=== PATIENT | female | born 1950 | race Caucasian/White ===

== ENCOUNTER 2019-06-17 08:29 | Day surgery (SDC) | payer MEDICARE, BC ==
[~2019-06-17] VITALS: Ht 165.1 cm; Wt 76.7 kg
[~2019-06-17 08:29] MED LIST: 24 HOUR ALLER15.8 ML NS; AMLODIPINE BESYL5 MG PO; ARMOUR THYROID60 MG PO; CALCIUM + VITA1 EACH PO; FISH OIL300 MG PO; LEVSIN-SL0.125 MG SL; NEXIUM20 MG PO; SERTRALINE HCL25 MG PO
--- NOTE | 2019-06-17 10:01 | NUR ---
06/17/19 1001 Che Carrillo 0957 PATIENT ARRIVES TO PACU AWAKE, BUT DROWSY. DENIES PAIN OR NAUSEA. OXYGEN TURNED OFF ON ARRIVAL TO PACU, ROOM AIR SATS >96%. GLASS GIVEN BACK TO PATIENT.
--- NOTE | 2019-06-17 13:10 | OR ---
[facility] [address] [place], [place] [address] Signed DATE OF OPERATION: 06/17/2019 SURGEON: Clarisa Huddleston MD PREOPERATIVE DIAGNOSES: 1. Episodic cervical dysphagia. 2. History of clinical reflux symptoms. POSTOPERATIVE DIAGNOSIS: Normal-appearing hypopharynx, esophagus, stomach, and duodenum. PROCEDURE: Esophagogastroduodenoscopy with biopsy. ANESTHESIA: Intravenous sedation, fentanyl 100 mcg, Versed 5 mg. INDICATION: This 69-year-old white woman is a patient of Dr. Wilcox and was referred for upper endoscopy. Patient is known to me from the past having been seen in 2015, at which time she underwent upper endoscopy for similar complaints of cervical dysphagia. There were no significant findings at that time and no sign of eosinophilic esophagitis. She was referred in September for consideration of upper endoscopy on the basis of reflux problems. She notes her reflux problems are improved with Nexium. She has been taking Nexium more or less for 15 years. She had cervical dysphagia to a degree. Certain foods would stick in the area including bread and meat. She had voice changes such that she was unable to sing. Her symptoms have improved. Many of her symptoms have since cleared up. She remains on Nexium. It is notable that her symptoms had increased after respiratory infection in August or September. Fair amount of phlegm and other respiratory secretions were noted. She has no globus sensation. She is known to take thyroid supplement, T3 and T4, but no known thyroid nodule or goiter. She has had no prior neck injury. Notably, her grandmother had a very large goiter. She was admitted at this time to undergo upper endoscopy to better characterize her problem understanding the risks of bleeding, infection, and perforation. FINDINGS: Examination was normal. This included the vocal cords, hypopharynx, entire esophagus, stomach, and duodenum. Biopsies were obtained nevertheless. DESCRIPTION OF PROCEDURE: Electronically Signed By: CLARISA HUDDLESTON MD 06/17/19 1310 PATIENT NAME: GAIL RAMOS OPERATIVE REPORT DATE OF : 46 REPORT #: [id number] PHYSICIAN: CLARISA HUDDLESTON MD PCP: CAMPBELL WILCOX MD REPORT IS CONFIDENTIAL AND NOT TO BE RELEASED WITHOUT AUTHORIZATION [facility] [address] [place], [place] [address] Signed The patient was brought to the endoscopy suite and given topical Hurricaine spray and hypopharyngeal anesthesia and placed in lateral decubitus position. She was given intravenous sedation to the point of slurred speech and nystagmus with full cardiopulmonary monitoring. A bite block was placed and an Olympus video upper endoscope passed in the hypopharynx. The vocal cords and surrounding soft tissue were normal. Scope was advanced to the esophagus without problem. The scope was advanced down the esophagus, which appeared normal. Stomach insufflated. Rugal folds were normal. Antrum and pylorus normal. Scope was passed through the pylorus into the duodenum, which was normal. Biopsies were obtained to assess for celiac disease. The scope was withdrawn. Biopsies taken of the stomach for both AARON and pathologic testing. Retroflexed view showed a normal flap valve and no sign of hiatal hernia. Withdrawal of scope to the distal esophagus allowed for biopsies of the mid, distal, and proximal portions. Re-inspection of the hypopharynx showed no abnormalities. Scope was removed and the patient was taken to recovery room in good condition. CONCLUDING DIAGNOSIS: Essentially normal. PLAN: I would have her continue with Nexium as it appears she has improvement while on the medication. We acknowledge potential risks with long-term PPI use. However, it appears to keep her clinical reflux symptoms at bay. She will return to the ongoing care of Dr. Wilcox. MD YURIY Guzman/MICHELLEL /[id number] cc: Dr. Wilcox Copies: ~ Electronically Signed By: CLARISA HUDDLESTON MD 06/17/19 1310 PATIENT NAME: GAIL RAMOS OPERATIVE REPORT DATE OF : 46 REPORT #: [id number] PHYSICIAN: CLARISA HUDDLESTON MD PCP: CAMPBELL WILCOX MD REPORT IS CONFIDENTIAL AND NOT TO BE RELEASED WITHOUT AUTHORIZATION
--- NOTE | 2019-06-20 13:41 | PATH ---
[facility] [address] [place], [place] [address] Signed SPECIMEN(S): A DUODENUM NOS SPECIMEN(S): B ANTRUM SPECIMEN(S): C DISTAL ESOPHAGUS NOS SPECIMEN(S): D MID ESOPHAGUS NOS SPECIMEN(S): E PROXIMAL ESOPHAGUS NOS SPECIMEN SOURCE: A. DUODENUM NOS B. ANTRUM C. DISTAL ESOPHAGUS NOS D. MID ESOPHAGUS NOS E. PROXIMAL ESOPHAGUS NOS CLINICAL HISTORY: Dysphagia, GERD / Normal esophagus. MICROSCOPIC DESCRIPTION: Histologic sections of all submitted blocks are examined by light microscopy. These findings, together with the gross examination, support the pathologic diagnosis. FINAL PATHOLOGIC DIAGNOSIS: A. Duodenum, biopsy: - Duodenal mucosa with no histopathologic abnormality. - Normal villous architecture present. - Negative for dysplasia or malignancy. B. Stomach, antrum, biopsy: - Antral mucosa with no histopathologic abnormality. - No Helicobacter organisms identified on HE stain. - Negative for dysplasia or malignancy. C. Esophagus, distal, biopsy: - Squamous mucosa with mild reactive changes, see comment. - Negative for intestinal metaplasia, dysplasia or malignancy. D. Esophagus, mid, biopsy: - Squamous mucosa with mild reactive changes, see comment. - Negative for intestinal metaplasia, dysplasia, or malignancy. E. Esophagus, proximal, biopsy: - Squamous mucosa with no histopathologic abnormality. - Negative for intestinal metaplasia, dysplasia or malignancy. COMMENT: Sections of the distal and mid esophageal biopsies (C and D) are similar and PATIENT NAME: GALI RAMOS PATHOLOGY DATE OF : 46 REPORT #: [id number] PHYSICIAN: ANNEL PATHOLOGY PCP: CAMPBELL ADAME MD REPORT IS CONFIDENTIAL AND NOT TO BE RELEASED WITHOUT AUTHORIZATION [facility] [address] [place], [place] [address] Signed demonstrate focal mild basal cell hyperplasia, few scattered intraepithelial lymphocytes, spongiosis, and mild mucosal capillary dilation. These findings are suggestive of changes secondary to reflux esophagitis. Clinical correlation is required. NAL:cml:C2NR GROSS DESCRIPTION: A. The specimen is received in a formalin filled specimen container labeled "KS, #1". A single pink biopsy is 0.4 cm and entirely submitted in cassette A1. B. The specimen is received in a formalin filled specimen container labeled "KS, #2". A single soriano biopsy is 0.4 cm and entirely submitted in cassette B1. C. The specimen is received in a formalin filled specimen container labeled "KS, #3". A single soriano biopsy is 0.3 cm and entirely submitted in cassette C1. D. The specimen is received in a formalin filled specimen container labeled "KS, #4". Two soriano biopsies are 0.2 and 0.3 cm and entirely submitted in cassette D1. E. The specimen is received in a formalin filled specimen container labeled "KS, #5". A single soriano biopsy is 0.5 cm and entirely submitted in cassette E1. GW (under the direct supervision of a pathologist) The Gross Description was prepared using a voice recognition system. The report was reviewed for accuracy; however, sound-alike word errors, addition and/or deletions may occur. If there is any question about this report, please contact Client Services. PERFORMING LABORATORY: The technical component was performed by [facility], [address] [place] [address] (Stone Rigger: Amanda Blackburn MD; CLIA# [id number]). Professional interpretation was performed by [facility], [address] [address] (Stone Rigger: Ced Marcano MD; CLIA# [id number]). Diagnostician: Ami Jernigan MD Pathologist Electronically Signed 06/20/2019 Copies: PATIENT NAME: SHERRYCHAIGAILDERICK HASSAN PATHOLOGY DATE OF : 46 REPORT #: [id number] PHYSICIAN: ANNEL PATHOLOGY PCP: CAMPBELL ADAME MD REPORT IS CONFIDENTIAL AND NOT TO BE RELEASED WITHOUT AUTHORIZATION [facility] [address] [place], [place] [address] Signed ~ PATIENT NAME: FERNY RAMOSDERICK HASSAN PATHOLOGY DATE OF : 46 REPORT #: [id number] PHYSICIAN: [facility] PATHOLOG[facility] PCP: CAMPBELL ADAME MD REPORT IS CONFIDENTIAL AND NOT TO BE RELEASED WITHOUT AUTHORIZATION
== END 2019-06-17 10:25 | disposition home or self-care (01) ==
LOC: OPS 08:29 → DS 08:37 → OPS 09:30
PROVIDERS: Surgery
PROC: 0DB78ZX Excision of Stomach, Pylorus, Via Natural or Artificial Opening Endoscopic, Diagnostic (ICD-10-PCS; 2019-06-17)
PROC: 0DB38ZX Excision of Lower Esophagus, Via Natural or Artificial Opening Endoscopic, Diagnostic (ICD-10-PCS; 2019-06-17)
PROC: 0DB28ZX Excision of Middle Esophagus, Via Natural or Artificial Opening Endoscopic, Diagnostic (ICD-10-PCS; 2019-06-17)
PROC: 0DB18ZX Excision of Upper Esophagus, Via Natural or Artificial Opening Endoscopic, Diagnostic (ICD-10-PCS; 2019-06-17)
PROC: 0DB98ZX Excision of Duodenum, Via Natural or Artificial Opening Endoscopic, Diagnostic (ICD-10-PCS; principal; 2019-06-17 09:30)
DX: R13.13 Dysphagia, pharyngeal phase (principal); I10 Essential (primary) hypertension; K21.9 Gastro-esophageal reflux disease without esophagitis; E78.00 Pure hypercholesterolemia, unspecified; E03.9 Hypothyroidism, unspecified; K21.0 Gastro-esophageal reflux disease with esophagitis; Z98.1 Arthrodesis status; Z88.6 Allergy status to analgesic agent; Z88.5 Allergy status to narcotic agent; Z88.0 Allergy status to penicillin; Z88.8 Allergy status to other drugs, medicaments and biological substances; Z79.890 Hormone replacement therapy; Z98.890 Other specified postprocedural states
CPT/HCPCS: 88305; 99153; G0500; J2250; J3010; J7121

== ENCOUNTER 2020-07-12 06:24 | Day surgery (SDC) | payer MEDICARE, BC ==
[~2020-07-12] VITALS: Ht 165.1 cm; Wt 71.8 kg
[~2020-07-12 06:24] MED LIST changes: +ADVIL200 M1 PO; +ALIGN4 MG PO; +ECHINACEA400 MG PO; +MULTI VITAMIN1 EACH PO
--- NOTE | 2020-07-12 08:29 | NUR ---
07/12/20 0829 Che Carrillo 0823 PATIENT ARRIVES TO PACU AWAKE BUT DROWSY. RESP EVEN AND UNLABORED. ROOM AIR SATS >93%. PATIENT DENIES PAIN OR NAUSEA. 0825 PATIENT AWAKE. REPOSTIONS SELF TO BACK. RESP EVEN AND UNLABORED. DRINKING SIPS OF WATER.
--- NOTE | 2020-07-12 14:34 | NUR ---
CONNECTED BRIEFLY WITH PT OR STAFF WAS TAKING PT TO SURGERY. GAVE ENCOURAGEMENT, PT THANKED ME. WILL FOLLOW NEEDED
--- NOTE | 2020-07-13 09:01 | OR ---
[facility] [address] [place], [place] [address] Signed DATE OF OPERATION: 07/12/2020 SURGEON: Clarisa Huddleston MD PREOPERATIVE DIAGNOSES: 1. History of seven hyperplastic polyps in 2005. 2. Positive Cologuard test. POSTOPERATIVE DIAGNOSES: 1. Polyps x5 at 70 cm, 60 cm and rectosigmoid. 2. Diverticulosis, sigmoid colon. PROCEDURE: Total colonoscopy to cecum with cold morcellation polypectomy x5. ANESTHESIA: Intravenous sedation, propofol infusion, Andrew Christiano, DRILLING AND PRODUCTION SUPERINTENDENT PREOPERATIVE ANTIBIOTIC: Clindamycin. INDICATIONS: This 70-year-old white woman is a patient Dr. Wilcox and underwent colonoscopy by me in 2005, at which time she had seven hyperplastic polyps. She was advised to have repeat colonoscopy sooner than this, but she declined. She recently had a Cologuard test, which was positive. She has had no blood per rectum, diarrhea, or constipation problems. The patient does have history of left knee replacement, and she was given preoperative antibiotic clindamycin on that basis. She has multiple allergies as well. The risks of bleeding, infection, and perforation related to colonoscopy was reviewed with her, she understands and wished to proceed. FINDINGS: The prep was good. Complete colonoscopy was undertaken to the cecum. There were numerous diverticula of the sigmoid and left colon. There were five polyps identified, two of which were probably adenomas at 70 and 60 cm, the others were likely hyperplastic. There was no sign of large lesion, no sign of cancer by any means. DESCRIPTION OF PROCEDURE: The patient was brought to the surgical endoscopy suite, placed in lateral decubitus position, given intravenous sedation to the point of slurred speech and nystagmus with Electronically Signed By: CLARISA HUDDLESTON MD 07/13/20 0901 PATIENT NAME: GAIL RAMOS OPERATIVE REPORT DATE OF : 46 REPORT #: [id number] PHYSICIAN: CLARISA HUDDLESTON MD PCP: VANE WILCOX MD REPORT IS CONFIDENTIAL AND NOT TO BE RELEASED WITHOUT AUTHORIZATION [facility] [address] [place], [place] [address] Signed full cardiopulmonary monitoring by the stuntman with propofol infusional technique. Digital rectal examination was normal. Olympus video colonoscope was passed into the rectum and with all the care manipulated through a tortuous sigmoid with numerous diverticula and ultimately to the cecum. Ileocecal valve and appendiceal orifice were well identified. The prep was quite good. The scope was withdrawn from that point. Careful inspection upon withdrawal of scope showed no sign of abnormality until approximately 60 cm from the anal verge, where a small polyp was noted, this appeared adenomatous. Cold morcellation polypectomy was undertaken. This was at about 70 cm from the anal verge. Another small polyp was similarly noted there. The scope was withdrawn and another polyp of similar size and nature was noted at 60 cm. Careful withdrawal showed no other abnormality into the rectosigmoid, where there was a cluster of about four hyperplastic polyps, all excised with cold morcellation technique. Retroflexed view showed internal hemorrhoidal changes, but no other abnormality. The patient was taken to the recovery room in good condition, having suffered no complications. CONCLUDING DIAGNOSES: 1. Polyps x5, mix of hyperplastic and adenomatous, most likely. 2. Diverticulosis. PLAN: Recommend repeat colonoscopy in 5 years or sooner if symptoms should occur. She will return to the ongoing care of Dr. Wilcox. Clarisa Huddleston MD JM/MODL /[id number] cc: Vane Wilcox MD Copies: Electronically Signed By: CLARISA HUDDLESTON MD 07/13/20 0901 PATIENT NAME: GAIL RAMOS OPERATIVE REPORT DATE OF : 46 REPORT #: [id number] PHYSICIAN: CLARISA HUDDLESTON MD PCP: VANE WILCOX MD REPORT IS CONFIDENTIAL AND NOT TO BE RELEASED WITHOUT AUTHORIZATION [facility] [address] [place] [address] Signed ~ Electronically Signed By: CLARISA HUDDLESTON MD 07/13/20 0901 PATIENT NAME: GAIL RAMOS OPERATIVE REPORT DATE OF : 46 REPORT #: [id number] PHYSICIAN: CLARISA HUDDLESTON MD PCP: VANE WILCOX MD REPORT IS CONFIDENTIAL AND NOT TO BE RELEASED WITHOUT AUTHORIZATION
--- NOTE | 2020-07-13 16:02 | PATH ---
[facility] [address] [place], [place] [address] Signed SPECIMEN(S): A COLON POLYP AT 70 CM SPECIMEN(S): B COLON POLYP AT 60 CM SPECIMEN(S): C COLON POLYP AT 50 CM SPECIMEN(S): D RECTAL POLYP SPECIMEN SOURCE: A. COLON POLYP AT 70 CM B. COLON POLYP AT 60 CM C. COLON POLYP AT 50 CM D. RECTAL POLYP CLINICAL HISTORY: Colonoscopy. History of polyps, history of positive Cologuard. MICROSCOPIC DESCRIPTION: Histologic sections of all submitted blocks are examined by light microscopy. These findings, together with the gross examination, support the pathologic diagnosis. FINAL PATHOLOGIC DIAGNOSIS: A. Colon polyp at 70 cm: - Tubular adenoma (one fragment). B. Colon polyp at 60 cm: - Tubular adenoma (one fragment). - Serrated polyp/adenoma (two fragments). C. Colon polyp at 50 cm: - Serrated polyp/adenoma (one fragment). D. Rectal polyp: - Hyperplastic polyp (one fragment). JVR:caw:C2NR GROSS DESCRIPTION: Four specimens are received in four containers, labeled "KS." A. The specimen, labeled "KS, 1," and designated on the requisition "colon polyp at 70 cm," is received in formalin and consists of one soriano soft tissue fragment that measures 0.3cm in greatest dimension. The specimen is entirely submitted in cassette (A1). B. The specimen, labeled "KS, 2," and designated on the requisition "colon polyp at 60 cm," is received in formalin and consists of multiple soriano soft tissue fragments that measure 1.3 x 0.4 x 0.3 cm in aggregate. The specimen is entirely submitted in cassette (B1). C. The specimen, labeled "KS, 3," and designated on the requisition "colon PATIENT NAME: GAIL RAMOS PATHOLOGY DATE OF : 46 REPORT #: [id number] PHYSICIAN: [employer] PATHOLOGY PCP: CAMPBELL ADAME MD REPORT IS CONFIDENTIAL AND NOT TO BE RELEASED WITHOUT AUTHORIZATION [facility] [address] [place], [place] [address] Signed polyp at 50 cm," is received in formalin and consists of one soriano soft tissue fragment that measures 0.3 cm in greatest dimension. The specimen is entirely submitted in cassette (C1). D. The specimen, labeled "KS, 4," and designated on the requisition "hyperplastic rectal polyp," is received in formalin and consists of two soriano soft tissue fragments that measure 0.2-0.5 cm in greatest dimension. The specimen is entirely submitted in cassette (D1). AT (under the direct supervision of a pathologist) The Gross Description was prepared using a voice recognition system. The report was reviewed for accuracy; however, sound-alike word errors, addition and/or deletions may occur. If there is any question about this report, please contact Client Services. PERFORMING LABORATORY: The technical component was performed by [facility], [address] [place] [address] (Silver Solution Mixer: Amanda Blackburn MD; CLIA# [id number]). Professional interpretation was performed by [facility], [address] [address]. Diagnostician: Camden Taylor MD Pathologist Electronically Signed 07/13/2020 Copies: ~ PATIENT NAME: GAIL RAMOS PATHOLOGY DATE OF : 46 REPORT #: [id number] PHYSICIAN: ANNEL JERONIMO PCP: CAMPBELL ADAME MD REPORT IS CONFIDENTIAL AND NOT TO BE RELEASED WITHOUT AUTHORIZATION
== END 2020-07-12 09:00 | disposition home or self-care (01) ==
LOC: OPS 06:24 → DS 06:24 → OPS 06:45 → DS 06:45 → OPS 09:00
PROVIDERS: ATTEND Surgery
PROC: 0DBE8ZX Excision of Large Intestine, Via Natural or Artificial Opening Endoscopic, Diagnostic (ICD-10-PCS; 2020-07-12)
PROC: 0DBN8ZX Excision of Sigmoid Colon, Via Natural or Artificial Opening Endoscopic, Diagnostic (ICD-10-PCS; principal; 2020-07-12 09:00)
DX: K57.30 Diverticulosis of large intestine without perforation or abscess without bleeding (principal); D12.6 Benign neoplasm of colon, unspecified; K63.5 Polyp of colon; K62.1 Rectal polyp; K64.8 Other hemorrhoids; I10 Essential (primary) hypertension; E78.00 Pure hypercholesterolemia, unspecified; K21.9 Gastro-esophageal reflux disease without esophagitis; E03.9 Hypothyroidism, unspecified; M19.90 Unspecified osteoarthritis, unspecified site; G89.29 Other chronic pain; M54.9 Dorsalgia, unspecified; I35.1 Nonrheumatic aortic (valve) insufficiency; Z86.010 Personal history of colon polyps; Z90.49 Acquired absence of other specified parts of digestive tract; Z96.659 Presence of unspecified artificial knee joint; Z88.8 Allergy status to other drugs, medicaments and biological substances; Z88.1 Allergy status to other antibiotic agents; Z88.6 Allergy status to analgesic agent; Z79.899 Other long term (current) drug therapy; Z79.1 Long term (current) use of non-steroidal anti-inflammatories (NSAID); Z79.890 Hormone replacement therapy
CPT/HCPCS: J2704; J7121

== ENCOUNTER 2021-11-01 06:00 | Day surgery (SDC) | payer MEDICARE, BC ==
[~2021-11-01] VITALS: Ht 165.1 cm; Wt 75.0 kg
--- NOTE | 2021-11-01 08:25 | NUR ---
11/01/21 0825 Sofiya Rodriguez 0820- PT TO PACU IN LL POSITION. EYES OPEN. PT DENIES PAIN. BREATHING EASY AND UNLABORED. SPO2 >95% ON 3 L O2 VIA NC. PT ENCOURAGED TO PASS GAS. PT EDUCATED ON POC IN PACU.
--- NOTE | 2021-11-01 08:45 | NUR ---
PT ALERT, ORIENTED AND SOMEWHAT ANXIOUS FOR TODAY. PT HAS HAD SCOPE BEFORE, GAVE ENCOURAGEMENT, OUTLINED THE DAY AND HAD PRAYER WITH PT AT HER REQUEST. WILL FOLLOW NEEDED
--- NOTE | 2021-11-02 11:23 | OR ---
[facility] [address] [place], [place] [address] Signed DATE OF OPERATION: 11/01/2021 SURGEON: Clarisa Huddleston MD PREOPERATIVE DIAGNOSIS: History of serrated adenomas x2 and tubular adenomas in 2019. POSTOPERATIVE DIAGNOSES: 1. Sigmoid and left-sided diverticulosis. 2. Polyps x2 (cecum and left colon). PROCEDURES: Total colonoscopy to cecum with cold snare polypectomy x1 and cold morcellation polypectomy x1. ANESTHESIA: Intravenous sedation; fentanyl 150 mcg and Versed 9 mg. INDICATIONS FOR THE PROCEDURE: This 71-year-old white woman is a patient of Dr. Vane Wilcox. She is known to me from the past having undergone colonoscopy in 2019, at which time she had several polyps excised including two serrated adenomas. She remained symptom-free at this time. She is here to undergo surveillance colonoscopy. She understands the risks of bleeding, infection, and perforation and wished to proceed. FINDINGS: The prep was good. Complete colonoscopy was undertaken to the cecum without question. She had two polyps, first one rather small one in the cecum, the other in the left colon at approximately 70 cm. Both were excised completely. Extensive diverticulosis was noted in the sigmoid and left colon. There were no other findings of concern. DESCRIPTION OF PROCEDURE: The patient was brought to the endoscopy suite and placed in lateral decubitus position given intravenous sedation to the point of slurred speech and nystagmus. Digital rectal examination was normal. An Olympus video colonoscope was passed into the rectum and manipulated throughout the colon. Passage to the sigmoid and left colon was somewhat challenging on the basis of diverticulosis. The scope once passed this area was ultimately advanced to the cecum. The ileocecal valve and appendiceal orifice were noted. Upon withdrawal of scope in the Electronically Signed By: CLARISA HUDDLESTON MD 11/02/21 1123 PATIENT NAME: GAIL RAMOS OPERATIVE REPORT DATE OF : 46 REPORT #: [id number] PHYSICIAN: CLARISA HUDDLESTON MD PCP: VANE WILCOX MD REPORT IS CONFIDENTIAL AND NOT TO BE RELEASED WITHOUT AUTHORIZATION [facility] [address] [place], [place] [address] Signed proximal right colon was a somewhat sessile polyp, this was excised with cold snare and cold polypectomy technique using morcellation technique completely excising the lesion. Photographs were taken. The scope was withdrawn. No other abnormalities were noted until approximately 70 cm from the anal verge, where a sessile polyp was identified, this was excised with cold snare technique. This was passed for pathology. The scope was withdrawn. Remaining colon was normal except for diverticulosis. The rectum was normal. The scope was removed. The patient was taken to the recovery room in good condition. CONCLUDING DIAGNOSIS: Polyps x2, diverticulosis. PLAN: Recommend repeat colonoscopy in three years or sooner if symptoms should occur. She will return to the ongoing care of Dr. Wilcox. MD YURIY Guzman/MATT /[id number] cc: Vane Wilcox MD Copies: ~ Electronically Signed By: CLARISA HUDDLESTON MD 11/02/21 1123 PATIENT NAME: RACHELGIALDEIRCK HAGERRED OPERATIVE REPORT DATE OF : 46 REPORT #: [id number] PHYSICIAN: CLARISA HUDDLESTON MD PCP: VANE WILCOX MD REPORT IS CONFIDENTIAL AND NOT TO BE RELEASED WITHOUT AUTHORIZATION
--- NOTE | 2021-11-05 14:39 | PATH ---
[facility] [address] [place], [place] [address] Signed SPECIMEN(S): A CECAL POLYP SPECIMEN(S): B DESCENDING/LEFT COLON POLYP AT 70 CM SPECIMEN SOURCE: A. CECAL POLYP B. DESCENDING/LEFT COLON POLYP AT 70 CM CLINICAL HISTORY: Serrated adenoma on previous colonoscopy. FINAL PATHOLOGIC DIAGNOSIS: A. Colon, cecum, polyp, polypectomy: - Tubular adenoma (one fragment); negative for high-grade dysplasia. - Multiple fragments of sessile serrated lesion(s); negative for dysplasia. - Negative for malignancy. B. Colon, descending/left, polyp at 70 cm, polypectomy: - Fragments of hyperplastic polyp. - Negative for dysplasia or malignancy. NAL:cml:C2NR MICROSCOPIC EXAMINATION: Histologic sections of all submitted blocks are examined by light microscopy. These findings, together with the gross examination, support the pathologic diagnosis. GROSS DESCRIPTION: Two specimens are received in two containers, labeled "KS." A. The specimen, labeled "KS, cecal polyp," is received in formalin and consists of multiple soriano soft tissue fragments that measure up to 0.3 cm in greatest dimension. The specimen is entirely submitted in cassette (A1). B. The specimen, labeled "KS, left colon polyp at 70 cm," is received in formalin and consists of three soriano soft tissue fragments that measure 0.3 to 0.6 cm in greatest dimension. The specimen is entirely submitted in cassette (B1). AT (under the direct supervision of a pathologist) The Gross Description was prepared using a voice recognition system. The report was reviewed for accuracy; however, sound-alike word errors, addition and/or deletions may occur. If there is any question about this report, please contact Client Services. PATIENT NAME: GAIL RAMOS PATHOLOGY DATE OF : 46 REPORT #: [id number] PHYSICIAN: ANNEL JERONIMO PCP: CAMPBELL ADAME MD REPORT IS CONFIDENTIAL AND NOT TO BE RELEASED WITHOUT AUTHORIZATION [facility] [address] [place] [address] Signed PERFORMING LABORATORY: The [facility] [place] [address] (Laceworker: Amanda Blackburn MD; CLIA# [id number]). Professional interpretation was performed by [facility], [address] [place] [address] (CLIA# [id number]). Diagnostician: Ami Jernigan MD Pathologist Electronically Signed 11/05/2021 Copies: ~ PATIENT NAME: GAIL RAMOS PATHOLOGY DATE OF : 46 REPORT #: [id number] PHYSICIAN: ANNEL JERONIMO PCP: CAMPBELL ADAME MD REPORT IS CONFIDENTIAL AND NOT TO BE RELEASED WITHOUT AUTHORIZATION
== END 2021-11-01 09:00 | disposition home or self-care (01) ==
LOC: DS 06:00 → OPS 06:00 → DS 06:45 → OPS 07:00 → DS 07:00 → OPS 09:00
PROVIDERS: ATTEND Surgery
PROC: 0DBH8ZX Excision of Cecum, Via Natural or Artificial Opening Endoscopic, Diagnostic (ICD-10-PCS; 2021-11-01)
PROC: 0DBG8ZX Excision of Left Large Intestine, Via Natural or Artificial Opening Endoscopic, Diagnostic (ICD-10-PCS; principal; 2021-11-01 07:00)
DX: Z12.11 Encounter for screening for malignant neoplasm of colon (principal); D12.0 Benign neoplasm of cecum; K57.30 Diverticulosis of large intestine without perforation or abscess without bleeding; E03.9 Hypothyroidism, unspecified; K21.9 Gastro-esophageal reflux disease without esophagitis; I10 Essential (primary) hypertension; I35.1 Nonrheumatic aortic (valve) insufficiency; Z96.659 Presence of unspecified artificial knee joint; Z98.890 Other specified postprocedural states; Z87.19 Personal history of other diseases of the digestive system; Z88.1 Allergy status to other antibiotic agents; Z88.5 Allergy status to narcotic agent; Z88.8 Allergy status to other drugs, medicaments and biological substances
CPT/HCPCS: 99153; G0500; J0694; J2250; J3010; J7121

== ENCOUNTER 2023-03-09 12:57 | Day surgery (SDC) | payer MEDICARE, BC ==
[~2023-03-09] VITALS: Ht 165.1 cm; Wt 77.5 kg
[2023-03-09 13:12] VITALS: BP 162/69
[2023-03-09 15:40] VITALS: BP 139/79
--- NOTE | 2023-03-09 16:18 | NUR ---
03/09/23 1618 Shantal Wright 1435- PT ARRIVES IN PACU ALERT IN LEFT LATERAL POSITION. ALL MONITORS APPLIED. PT HR AROUND 40, REPORT THAT WAS THE SAME IN OR. LR INFUSING TO RFA. PT ARRIVES ON 3L O2 PER NC, MOVED TO ROOM AIR WITH ETCO2 IN PLACE. ABD SOFT, NON TENDER, ENCOURAGED TO PASS GAS. 1450- PT RESTING INTERMITTENTLY. NO CHANGE IN HEART RATE. 5 LEAD PLACED TO CAPTURE RHYTHM. PT IN BIGEM[place] ON MONITOR. PT PERFUSING 40 BEATS BY PALPATION, ALTHOUGH ECG READS 80. PT DENIES DIZZINESS. WILL CONTINUE TO MONITOR. 1530- PT SITTING UP AND DRINKING WATER. TOLERATING WELL. BP INCREASES WITH SITTING UP AND HEART RHYTHM MORE CONSISTENTLY NSR. PT AWARE OF ISSUES AND WILL CONTINUE CARDIOLOGY FOLLOW UP. 1540- PT UP TO SIDE OF BED TO GET DRESSED, NO DIZZINES. THIS RN FEELS THAT PT CAN SAFELY GO HOME WITH FOLLOW UP AT THIS TIME. DAUGHTER CONTACTED FOR RIDE HOME.
[2023-03-10] MEDS ORDERED: NEOMYCIN-POLYMY10 ML OTIC (12:36)
[2023-03-10] MEDS ORDERED: CIPRO HC OTIC S10 ML AD (12:36)
[2023-03-10] MEDS ORDERED: LEVOTHYROXINE100 MCG PO (12:45)
[2023-03-10] MEDS ORDERED: CARDIZEM CD120 MG PO (14:33)
--- NOTE | 2023-03-11 11:41 | PATH ---
[facility] [address] [facility] [place], [place] [address] Signed SPECIMEN(S): A SIGMOID POLYP SPECIMEN(S): B RECTOSIGMOID POLYP SPECIMEN SOURCE: A. SIGMOID POLYP B. RECTOSIGMOID POLYP CLINICAL HISTORY: Polyps. FINAL PATHOLOGIC DIAGNOSIS: A. Sigmoid polyp: - Polypoid fragment of benign colonic mucosa, negative for pathologic inflammation or epithelial dysplasia. B. Rectosigmoid polyp: - Hyperplastic polyp (1 fragment). JVR:[id number] MICROSCOPIC EXAMINATION: Histologic sections of all submitted blocks are examined by light microscopy. These findings, together with the gross examination, support the pathologic diagnosis. GROSS DESCRIPTION: A. The specimen, labeled and designated "Skirvin, sigmoid colon polyp," is received in formalin and consists of one soriano soft tissue fragment, 0.2 cm. Entirely submitted in (A1). B. The specimen, labeled and designated "Skirvin, rectosigmoid colon polyp," is received in formalin and consists of one soriano soft tissue fragment, 0.2 cm. Entirely submitted in (B1). JS (under the direct supervision of a pathologist) The Gross Description was prepared using a voice recognition system. The report was reviewed for accuracy; however, sound-alike word errors, addition and/or deletions may occur. If there is any question about this report, please contact Client Services. PERFORMING LABORATORY: Technical component was performed by [facility], [address] [place] [id number] (CLIA# [id number]). Professional interpretation was performed by [facility], [address] [place] [address], [place] [address] (CLIA#: [id number]). PATIENT NAME: GAIL RAMOS PATHOLOGY DATE OF : 46 REPORT #: [id number] PHYSICIAN: [facility] PCP: CAMPBELL ADAME MD REPORT IS CONFIDENTIAL AND NOT TO BE RELEASED WITHOUT AUTHORIZATION [address] [address] Signed Diagnostician: Camden Taylor MD Pathologist Electronically Signed 03/11/2023 Copies: ~ PATIENT NAME: GAIL RAMOS PATHOLOGY DATE OF : 46 REPORT #: [id number] PHYSICIAN: [facility] PCP: CAMPBELL ADAME MD REPORT IS CONFIDENTIAL AND NOT TO BE RELEASED WITHOUT AUTHORIZATION
--- NOTE | 2023-03-13 02:13 | OR ---
[facility] [address] [place], [place] [address] Signed DATE OF OPERATION: 03/09/2023 SURGEON: Clarisa Huddleston MD PREOPERATIVE DIAGNOSES: 1. History of serrated adenoma of cecum 2020. 2. 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 POSTOPERATIVE DIAGNOSES: 1. Hyperplastic polyp of rectosigmoid. 2. Small polyp of sigmoid. PROCEDURE: Total colonoscopy to cecum with cold snare polypectomy x1, cold morcellation polypectomy x1. ANESTHESIA: Intravenous sedation; fentanyl 150 mcg and Versed 5 mg. INDICATION: This 72-year-old white woman is a patient of Dr. Vane Wilcox. She is known to me from the past having undergone colonoscopy in 2020, demonstrating a serrated adenoma of the cecum. Complete excision was undertaken. She has no symptoms of bleeding, diarrhea, or constipation. She has no family history of colon cancer. She is admitted to undergo short-term surveillance on the basis of her previous serrated adenoma. She understands the risk of bleeding, infection, and perforation. FINDINGS: The prep was good. Complete colonoscopy was undertaken of the cecum. The patient had variable frequency of premature ventricular contractions, but had no hemodynamic compromise from them. Preoperative antibiotic clindamycin was given on the basis of joint replacement therapy and a complex list of allergies to various antibiotics. FINDINGS: Included a small adenomatous appearing polyp of the sigmoid and a hyperplastic appearing polyp of the rectosigmoid. DESCRIPTION OF PROCEDURE: The patient was brought to the endoscopy suite and placed in the lateral decubitus Electronically Signed By: CLARISA HUDDLESTON MD 03/13/23 0213 PATIENT NAME: GAIL RAMOS OPERATIVE REPORT DATE OF : 46 REPORT #: [id number] PHYSICIAN: CLARISA HUDDLESTON MD PCP: VANE WILCOX MD REPORT IS CONFIDENTIAL AND NOT TO BE RELEASED WITHOUT AUTHORIZATION [facility] [address] [place], [place] [address] Signed position, given intravenous sedation to the point of slurred speech and nystagmus. Digital rectal examination was normal. An Olympus video colonoscope was passed in the rectum and manipulated throughout the colon ultimately intubating the cecum itself. Copious foamy discharge from the ileum was noted. Irrigation was undertaken. Visualization of the cecum showed no sign of recurrent or new polyp. The scope was withdrawn from that point identifying the ileocecal valve. Further withdrawal throughout showed no sign of abnormality until approximately 40 cm from the anal verge in the region of the proximal sigmoid where a small adenomatous appearing polyp was noted based on narrow band imaging appearance. This was excised with cold snare technique as well as additional morcellation bites. Further withdrawal showed a hyperplastic appearing polyp in the rectosigmoid. This was excised with cold morcellation technique only. The scope was withdrawn to the rectum and retroflexed view was undertaken showing no abnormality at this time. The scope was removed and the patient was taken to the recovery room in good condition. CONCLUDING DIAGNOSES: 1. Two small polyps. 2. Diverticulosis, sigmoid and left colon. 3. Premature ventricular contractions (chronic ongoing). PLAN: We would recommend repeat colonoscopy in 3 to 5 years, sooner if clinically indicated. She will return to the ongoing care of Dr. 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 Carrillo for further management of PVC arrhythmias. MD YURIY Guzman/MICHELLEL /[id number] cc: Vane Wilcox MD Electronically Signed By: CLARISA HUDDLESTON MD 03/13/23212 PATIENT NAME: GAIL RAMOS OPERATIVE REPORT DATE OF : 46 REPORT #: [id number] PHYSICIAN: CLARISA HUDDLESTON MD PCP: VANE WILCOX MD REPORT IS CONFIDENTIAL AND NOT TO BE RELEASED WITHOUT AUTHORIZATION [address] [place] [address] Signed Copies: ~ Electronically Signed By: CLARISA HUDDLESTON MD 03/13/23212 PATIENT NAME: GAIL RAMOS OPERATIVE REPORT DATE OF : 46 REPORT #: [id number] PHYSICIAN: CLARISA HUDDLESTON MD PCP: VANE WILCOX MD REPORT IS CONFIDENTIAL AND NOT TO BE RELEASED WITHOUT AUTHORIZATION
== END 2023-03-09 15:52 | disposition home or self-care (01) ==
LOC: DS 12:57 → OPS 12:57 → DS 13:00 → OPS 14:00 → DS 14:00 → OPS 15:52
PROVIDERS: ATTEND Surgery
PROC: 0DBN8ZZ Excision of Sigmoid Colon, Via Natural or Artificial Opening Endoscopic (ICD-10-PCS; principal; 2023-03-09 14:00)
DX: Z12.11 Encounter for screening for malignant neoplasm of colon (principal); Z86.010 Personal history of colon polyps; Z96.659 Presence of unspecified artificial knee joint; Z98.1 Arthrodesis status; Z90.49 Acquired absence of other specified parts of digestive tract; K21.9 Gastro-esophageal reflux disease without esophagitis; I10 Essential (primary) hypertension; K63.5 Polyp of colon; K57.30 Diverticulosis of large intestine without perforation or abscess without bleeding; I49.3 Ventricular premature depolarization
CPT/HCPCS: 99153; G0500; J2250; J3010; J7121

== ENCOUNTER 2024-09-27 21:32 | Emergency (ER) | payer MEDICARE, BC ==
[~2024-09-27] VITALS: Ht 165.1 cm; Wt 80.7 kg
[~2024-09-27 21:32] MED LIST changes: +CARDIZEM CD120 MG PO; +CIPRO HC OTIC S10 ML AD; +LEVOTHYROXINE100 MCG PO; +NEOMYCIN-POLYMY10 ML OTIC
[2024-09-27] MEDS ORDERED: LIDOCAINE 2% W/ EPI 1:100,000 20 ML VIAL ONE (21:49)
[2024-09-27] MEDS ORDERED: OXYMETAZOLINE HCL 30 ML BTL NAS ONE (22:00)
[2024-09-27 22:52] VITALS: BP 146/78
== END 2024-09-27 22:53 | disposition home or self-care (01) ==
LOC: ED 21:32
DX: R04.0 Epistaxis (principal); I10 Essential (primary) hypertension; E78.5 Hyperlipidemia, unspecified; Z88.0 Allergy status to penicillin; Z88.1 Allergy status to other antibiotic agents; Z88.6 Allergy status to analgesic agent; Z88.5 Allergy status to narcotic agent; Z88.8 Allergy status to other drugs, medicaments and biological substances; Z79.890 Hormone replacement therapy; Z79.899 Other long term (current) drug therapy
CPT/HCPCS: 99283

== ENCOUNTER 2025-06-17 14:35 | Emergency (ER) | payer MEDICARE, BC | END 2025-06-17 17:52 | disposition home or self-care (01) | LOC: ED 14:35 | DX: R11.0 Nausea (principal); R23.2 Flushing; T45.8X5A Adverse effect of other primarily systemic and hematological agents, initial encounter; I10 Essential (primary) hypertension; E78.5 Hyperlipidemia, unspecified; Z79.899 Other long term (current) drug therapy ==

== ENCOUNTER 2025-06-26 09:58 | Emergency (ER) | payer MEDICARE, BC ==
[~2025-06-26] VITALS: Ht 165.1 cm; Wt 72.2 kg
[~2025-06-26 09:58] MED LIST changes: +CLOBETASOL PROP15 G3; +IVIZIA 0.5% EYE5 ML; +KETOCONAZOLE120 ML; +L-LYSINE500 M1; +LACTAID3000 UNI1; +OPTASE MGD ADVA10 ML
--- OUTSIDE RECORDS SUMMARY | 2025-06-26 10:06 | XMS ---
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 Alan VISIT COUNT (12 MO.) [address] [place] [address] TOTAL 3 NOTE: Visits indicate total known visits. ED/UCC VISIT TRACKING (12 MO.) 06/26/2025 09:58 [facility] TYPE: Emergency COMPLAINT: - HEART RATE ISSUE 06/17/2025 14:35 [facility] TYPE: Emergency COMPLAINT: - ALLERGIC REACTION DIAGNOSES: - Adverse effect of other primarily systemic and hematological agents, initial encounter - Essential (primary) hypertension - Flushing - Hyperlipidemia, unspecified - Nausea - Other detention (current) drug therapy 09/27/2024 21:[address] [facility] [place] TYPE: Emergency COMPLAINT: - NOSE BLEED DIAGNOSES: - Allergy status to analgesic agent - Allergy status to narcotic agent - Allergy status to other antibiotic agents - Allergy status to other drugs, medicaments and biological substances - Allergy status to penicillin - Epistaxis - Essential (primary) hypertension - Hormone replacement therapy - Hyperlipidemia, unspecified - Other filler leaf cutter long (current) drug therapy INPATIENT VISIT TRACKING (12 MO.) No inpatient visits to display in this time frame [email or web address]
[2025-06-26 10:20] LABS: BASOPHILS 0.8 % (0.1-1.2); EOSINOPHILS 2.0 % (0.7-5.8); LYMPHOCYTES 23.0 % (19.3-51.7); MCH 33.1 PG (25.6-32.2); MCHC 34.5 g/dL (32.2-35.5); MCV 96.1 fL (79.4-94.8); MONOCYTES 5.3 % (4.7-12.5); NEUTROPHILS 68.4 % (34.0-71.1); RBC 5.16 M/uL (3.93-5.22)
[2025-06-26] MEDS ORDERED: LORazepam 2 MG/ML VIAL IV ONE ×2 (10:30→10:45)
[2025-06-26 10:34] LABS: ALT (SGPT) 28.0 U/L (14-59); AST (SGOT) 21.0 U/L (15-37); GLOMERULAR FILTRATION RATE,EST 90.0 mL/min (>60); PROTEIN, TOTAL 8.2 g/dL (6.4-8.2); UREA NITROGEN 12.0 mg/dL (7-18)
[2025-06-26 12:23] VITALS: BP 121/66
--- NOTE | 2025-06-27 10:57 | EKG ---
[facility] [address] [facility] [place], [place] [address] Signed Sinus tachycardia Possible Left atrial enlargement Left bundle branch block Abnormal ECG When compared with ECG of 10-MAR-2023 12:16, premature ventricular complexes are no longer present T wave inversion now evident in Anterior leads Confirmed by Manas Avery DO ([id number]) on 06/27/2025 10:57:28 AM Electronically Signed By: MANAS AVERY DO 06/27/25 1057 PATIENT NAME: SHERRYCHAIGAILJOSELO HASSAN Electrocardiogram DATE OF : 46 PHYSICIAN: MANAS AVERY DO REPORT #: [id number] REPORT IS CONFIDENTIAL AND NOT TO BE RELEASED WITHOUT AUTHORIZATION
== END 2025-06-26 12:24 | disposition home or self-care (01) ==
LOC: ED 09:58
PROVIDERS: Emergency Medicine
DX: I10 Essential (primary) hypertension (principal); E78.5 Hyperlipidemia, unspecified; Z79.899 Other long term (current) drug therapy
CPT/HCPCS: 36415; 80053; 83735; 84484; 85025; 93005; 93010; 96374; 99285-25; J2060